=== PATIENT | female | born 1940 | race Caucasian/White ===

== ENCOUNTER 2017-12-01 05:23 | Day surgery (SDC) | payer MEDICARE, BC ==
[~2017-12-01 05:23] MED LIST: LACTATED RINGERS 1000 ML IV PRN; LIDOCAINE 0.5% INJ-PF (5 MG/ML) 50 ML SDV SUBCUT PRN
[2017-12-01] MEDS ORDERED: LIDOCAINE 2% INJ-PF (20 MG/ML) 10 ML AMPUL ONE (06:31)
[2017-12-01] MEDS ORDERED: MIDAZOLAM 2 MG/2 ML INJ ONE (06:32)
[2017-12-01] MEDS ORDERED: PROPRANOLOL HCL INJ/PF 1 MG/1 ML SDV IV ONE (06:32)
[2017-12-01] MEDS ORDERED: FENTANYL CITRATE INJ/PF 100 MCG/2 ML AMPUL ONE (06:32)
[2017-12-01] MEDS ORDERED: ONDANSETRON HCL INJ/PF 4 MG/2 ML SDV ONE (06:32)
[2017-12-01] MEDS ORDERED: PROPOFOL INJ 200 MG/20 ML VIAL IV ONE (06:34)
[2017-12-01] MEDS ORDERED: PROMETHAZINE HCL INJ 25 MG/1 ML VIAL IV PRN ×2 (07:11)
[2017-12-01] MEDS ORDERED: ONDANSETRON HCL INJ/PF 4 MG/2 ML SDV IV PRN (07:11)
[2017-12-01] MEDS ORDERED: FENTANYL CITRATE INJ/PF 100 MCG/2 ML AMPUL IV PRN ×3 (07:11)
[2017-12-01] MEDS ORDERED: MEPERIDINE HCL/PF INJ 25 MG/1 ML DISP.SYRIN IV PRN (07:11)
[2017-12-01] MEDS ORDERED: MORPHINE SULFATE 10 MG/ML INJ IV PRN (07:11)
[2017-12-01] MEDS ORDERED: DIPHENHYDRAMINE HCL 50 MG/ML VIAL IV PRN (07:11)
--- NOTE | 2017-12-01 08:39 | Discharge Summary ---
Discharge Summary (SDC) - Discharge Final Diagnosis: Diverticulosis, small internal hemorrhoids Date of Surgery: 12/01/17 Discharge Date: 12/01/17 Condition: Stable Referrals: UGO DE LOS SANTOS MD [Primary Care Provider] - Discharge Diet: As Tolerated Respiratory Treatments at Home: Deep Breathing/Coughing, Incentive Spirometer Discharge Activity: Slowly Increase Activity Home Care Assistance: None Needed Report the Following to Your Physician Immediately: Shortness of Breath, Nausea , Vomiting, Increase in Pain, Unusual Bleeding
--- NOTE | 2017-12-01 08:45 | Operative Report ---
Nonrecallable Operative Report DATE OF SURGERY: 12/01/17 PREOPERATIVE DIAGNOSIS: Chronic diarrhea POSTOPERATIVE DIAGNOSIS: 1. Chronic diarrhea. 2. Pandiverticulosis. 3. Small internal hemorrhoids. OPERATION: Colonoscopy to the cecum SURGEON: YOAV HITCHCOCK ANESTHESIA: LMAC TISSUE REMOVED OR ALTERED: None COMPLICATIONS: None apparent ESTIMATED BLOOD LOSS: None PROCEDURE: Drains/implants: None. Procedure in detail: After informed consent was obtained, the patient was laid in the left lateral decubitus position in the operating room. The endoscope was inserted into the rectum. The scope was passed up the rectum, sigmoid colon , descending colon, across the transverse colon, down the ascending colon, and into the cecum. The ileocecal valve and appendiceal orifice were identified. The scope was then withdrawn, circumferentially noting the mucosa. The prep was very good. The scope was pulled back past the ascending colon, transverse colon, descending colon, sigmoid colon, and into the rectum. A retroflexion maneuver was performed in the rectum. Small internal hemorrhoids were identified. There was no active bleeding. The scope was straightened, air was suctioned from the rectum, the scope was removed, and the procedure was concluded. There was noted to be diverticulosis throughout the colon, beginning at the ascending colon and extending all the way through to the distal sigmoid colon. There were no masses, lesions, ulcerations, areas of inflammation, active bleeding, tumors, or cancers identified. Once the scope was removed, the procedure was concluded. All sponge, instrument, and needle counts were correct 2. Condition: Stable.
[2017-12-01 09:19] VITALS: BP 116/64
== END 2017-12-01 09:20 | disposition home or self-care (01) ==
LOC: END 05:23
PROVIDERS: ATTEND Surgery
DX: K57.30 Diverticulosis of large intestine without perforation or abscess without bleeding (principal); K52.9 Noninfective gastroenteritis and colitis, unspecified; K64.8 Other hemorrhoids; M48.00 Spinal stenosis, site unspecified; E11.9 Type 2 diabetes mellitus without complications; I10 Essential (primary) hypertension; Z88.8 Allergy status to other drugs, medicaments and biological substances; Z79.899 Other long term (current) drug therapy; Z79.84 Long term (current) use of oral hypoglycemic drugs; Z79.82 Long term (current) use of aspirin
CPT/HCPCS: 45378; 82962; J2250; J3010; J2405; J2704; J3490; 811; G0121; J1800